=== PATIENT | female | born 1985 | race Caucasian/White ===

== ENCOUNTER → 2017-12-05 | Outpatient (CLI) | payer OTHER ==
--- NOTE | 2017-12-05 12:21 | RAD ---
INDICATION:NMGASE/INTRACTABLE HEARTBURN COMPARISON: None. FINDINGS: 2 mCi technetium 99m sulfur coli administered orally with solid meal. Scintigraphic images were then obtained of the abdomen. Time to half emptying for solids is estimated at 395 minutes. IMPRESSION: Delayed gastric emptying is seen during this examination. This can be seen with causes such as gastroparesis.
== END | disposition home or self-care (01) ==
LOC: NM 09:37
PROVIDERS: ATTEND Internal Medicine Gastroenterology
DX: R12 Heartburn (principal)
CPT/HCPCS: 78264; A9541